=== PATIENT | male | born 1955 | race African-American/Black ===

== ENCOUNTER 2023-08-21 11:23 | Inpatient (IN) | payer MEDICARE ==
[2023-08-21 12:06] LABS: #Basophils Less than 0.03 10x3/uL (0.0-0.2); %Basophils 0.2 % (0.0-1.0); %Eosinophils 0.6 % (0.0-10.0); %Lymphocytes 7.2 % (21.0-51.0); %Monocytes 7.6 % (0.0-10.0); %Neutrophils 83.7 % (42.0-75.0); Hematocrit 32.3 % (42.0-52.0); Hemoglobin 10.3 g/dL (14.0-18.0); Mean Corpuscular HGB CONC 31.9 g/dL (32.0-36.0); Mean Corpuscular Hemoglobin 29.3 pg (27.0-31.0); Mean Corpuscular Volume 91.8 fL (78.0-98.0); Mean Platelet Volume 9.3 fL (7.4-10.4); Platelet Count 406 10x3/uL (130-400); RBC Distribution Width 14.2 % (11.5-14.5); Red Blood Cell (RBC) Count 3.52 mill/uL (4.70-6.10)
[2023-08-21 12:18] LABS: INR-International Normal Ratio 1.1
[2023-08-21 12:19] LABS: PTT 42.3 sec (22.9-36.1)
[2023-08-21 12:22] LABS: ALT (SGPT) 12 U/L (8-55); AST (SGOT) 16 U/L (5-34); Albumin 2.6 g/dL (3.4-4.8); Alkaline Phosphatase 104 U/L (40-110); Anion Gap 16 mmol/L (10-20); BUN (Urea Nitrogen) 13 mg/dL (8.4-25.7); Bilirubin, Total 0.9 mg/dL (0.2-1.2); Calc. Creatinine Clearance 0 mL/min (70-130); Calcium 9.3 mg/dL (7.8-10.44); Carbon Dioxide 23 mmol/L (23-31); Chloride 107 mmol/L (98-107); Estimated GFR 94; Globulin 3.8 g/dL (2.4-3.5); Glucose 84 mg/dL (80-115); Potassium 4.2 mmol/L (3.5-5.1); Protein, Total 6.4 g/dL (5.8-8.1); Sodium 142 mmol/L (136-145)
[2023-08-21] MEDS ORDERED: Ondansetron PF 4 MG/2 ML Vial IVP PRN (13:10)
[2023-08-21] MEDS ORDERED: Calcium Carbonate 500 MG ChewTAB PO PRN (13:10)
[2023-08-21 15:16] VITALS: BMI 23.7
[2023-08-21] MEDS: Sodium Chloride 0.9% 1,000 ML IV SCH (16:54)
[2023-08-21] MEDS: Cefepime 1 GM in Sodium Chloride 0.9% 100 ML IVPB SCH (16:54)
[2023-08-21] MEDS: Acetaminophen 325 MG TAB PO SCH (16:59)
[2023-08-21] MEDS: Morphine 4 MG/ML VIAL SLOW IVP SCH (17:01)
[2023-08-21] MEDS ORDERED: Albuterol 2.5 MG (3 mL) NEB NEB PRN (18:13)
[2023-08-21] MEDS: Vancomycin (BATCH) 2 GM in Premix 1 BAG IVPB SCH (18:35)
[2023-08-21 19:06] LABS: Hematocrit 32.2 % (42.0-52.0); Hemoglobin 10.1 g/dL (14.0-18.0)
[2023-08-21] MEDS: Pantoprazole 40 MG VIAL IVP SCH (21:16)
[2023-08-21] MEDS: Pregabalin 75 MG CAP PO SCH (21:16)
[2023-08-21] MEDS: Atorvastatin Calcium 40 MG TAB PO SCH (21:16)
[2023-08-21] MEDS: Morphine 2 MG/ML VIAL SLOW IVP PRN (21:19)
[2023-08-22] MEDS: traMADol HCl 50 MG TAB PO PRN (00:24)
[2023-08-22] MEDS: Cefepime 1 GM in Sodium Chloride 0.9% 100 ML IVPB SCH (03:30)
[2023-08-22] MEDS: Vancomycin (BATCH) 1.25 GM in Premix 1 BAG IVPB SCH (06:03)
[2023-08-22 06:19] LABS: #Basophils 0.04 10x3/uL (0.0-0.2); %Basophils 0.5 % (0.0-1.0); %Eosinophils 3.8 % (0.0-10.0); %Lymphocytes 12.7 % (21.0-51.0); %Monocytes 8.5 % (0.0-10.0); %Neutrophils 74.1 % (42.0-75.0); Hemoglobin 8.7 g/dL (14.0-18.0); Mean Corpuscular HGB CONC 31.1 g/dL (32.0-36.0); Mean Corpuscular Hemoglobin 29.4 pg (27.0-31.0); Mean Corpuscular Volume 94.6 fL (78.0-98.0); Platelet Count 350 10x3/uL (130-400); RBC Distribution Width 14.1 % (11.5-14.5); Red Blood Cell (RBC) Count 2.96 mill/uL (4.70-6.10)
[2023-08-22 06:32] LABS: Hemoglobin A1c 5.7 % (4.0-6.0); INR-International Normal Ratio 1.1; Prothrombin Time 14.6 sec (12.0-14.7)
[2023-08-22 06:37] LABS: ALT (SGPT) Less than 5 U/L (8-55); AST (SGOT) 13 U/L (5-34); Albumin 2.2 g/dL (3.4-4.8); Alkaline Phosphatase 86 U/L (40-110); Anion Gap 9 mmol/L (10-20); BUN (Urea Nitrogen) 11 mg/dL (8.4-25.7); Calc. Creatinine Clearance 113 mL/min (70-130); Calcium 8.4 mg/dL (7.8-10.44); Carbon Dioxide 22 mmol/L (23-31); Chloride 113 mmol/L (98-107); Cholesterol 49 mg/dl (< 200 Desired); Estimated GFR 97; Globulin 3.1 g/dL (2.4-3.5); Glucose 92 mg/dL (80-115); HDL Cholesterol 25 mg/dL (>60 Neg Risk); LDL Cholesterol, Calculated 12 mg/dL; Potassium 3.7 mmol/L (3.5-5.1); Protein, Total 5.3 g/dL (5.8-8.1); Sodium 140 mmol/L (136-145); Triglycerides 62 mg/dL (Less than 150); Vancomycin, Random 16.5 ug/mL (See Comment)
[2023-08-22] MEDS: Tamsulosin HCl 0.4 MG CAP PO SCH (08:56)
[2023-08-22] MEDS: Losartan 25 MG TAB PO SCH (08:56)
[2023-08-22] MEDS: Clopidogrel Bisulfate 75 MG TAB PO SCH (08:56)
[2023-08-22] MEDS: Aspirin 81 mg Enteric Coated Tablet PO SCH (08:56)
[2023-08-22] MEDS: Amlodipine 10 MG TAB PO SCH (08:56)
[2023-08-22] MEDS ORDERED: Iopamidol-370 76% 500 ML MDV (1 ML CHARGE) ONE (09:32)
[2023-08-22] MEDS: Famotidine 20 MG TAB PO SCH (09:49)
[2023-08-22] MEDS: Acetaminophen/Codeine 30-300mg Tablet PO PRN (11:03)
[2023-08-22 16:07] LABS: Hematocrit 29.1 % (42.0-52.0); Hemoglobin 9.3 g/dL (14.0-18.0)
[2023-08-22] MEDS: Enoxaparin 100 MG (1 mL) SYRINGE SC SCH (20:29)
[2023-08-23 06:00] LABS: #Basophils 0.03 10x3/uL (0.0-0.2); %Basophils 0.4 % (0.0-1.0); %Eosinophils 5.2 % (0.0-10.0); %Lymphocytes 11.7 % (21.0-51.0); %Monocytes 7.1 % (0.0-10.0); %Neutrophils 75.1 % (42.0-75.0); Hematocrit 28.8 % (42.0-52.0); Hemoglobin 9.1 g/dL (14.0-18.0); Mean Corpuscular HGB CONC 31.6 g/dL (32.0-36.0); Mean Corpuscular Hemoglobin 29.3 pg (27.0-31.0); Mean Corpuscular Volume 92.6 fL (78.0-98.0); Mean Platelet Volume 9.3 fL (7.4-10.4); Platelet Count 380 10x3/uL (130-400); RBC Distribution Width 14.3 % (11.5-14.5); Red Blood Cell (RBC) Count 3.11 mill/uL (4.70-6.10)
[2023-08-23 06:17] LABS: Vancomycin, Random 18.7 ug/mL (See Comment)
[2023-08-23 06:26] LABS: Anion Gap 10 mmol/L (10-20); BUN (Urea Nitrogen) 9 mg/dL (8.4-25.7); Calc. Creatinine Clearance 119 mL/min (70-130); Calcium 8.4 mg/dL (7.8-10.44); Carbon Dioxide 22 mmol/L (23-31); Chloride 115 mmol/L (98-107); Estimated GFR 98; Glucose 83 mg/dL (80-115); Potassium 3.8 mmol/L (3.5-5.1); Sodium 143 mmol/L (136-145)
[2023-08-23] MEDS ORDERED: Morphine 2 MG/ML VIAL ONE (08:26)
[2023-08-23] MEDS ORDERED: fentaNYL 50 mcg/mL 1 mL Vial ONE (08:50)
[2023-08-23 09:15] VITALS: BMI 23.7
[2023-08-23] MEDS ORDERED: EPINEPHrine 1 MG/ML VIAL ONE (11:04)
[2023-08-23] MEDS ORDERED: Heparin 5,000 UNITS/ML VIAL ONE (11:04)
[2023-08-23] MEDS ORDERED: Bupivacaine PF 0.5% 30 ML VIAL ONE (11:05)
[2023-08-23] MEDS ORDERED: fentaNYL PF 100 MCG/2 ML SYRINGE ONE (11:29)
[2023-08-23] MEDS ORDERED: PROPOFOL 20 ML ONE (11:29)
[2023-08-23] MEDS ORDERED: Lidocaine 1% PF 5 ML VIAL ONE (12:22)
[2023-08-23] MEDS: Vancomycin 1 GM in Premix 1 BAG IVPB SCH (19:23)
[2023-08-23] MEDS: GoLYTELY 4,000 ml Bottle PO SCH (19:26)
[2023-08-24 06:25] LABS: #Basophils 0.04 10x3/uL (0.0-0.2); %Basophils 0.4 % (0.0-1.0); %Eosinophils 2.5 % (0.0-10.0); %Monocytes 6.3 % (0.0-10.0); %Neutrophils 83.4 % (42.0-75.0); Hemoglobin 8.9 g/dL (14.0-18.0); Mean Corpuscular HGB CONC 30.7 g/dL (32.0-36.0); Mean Corpuscular Hemoglobin 29.5 pg (27.0-31.0); Mean Platelet Volume 9.5 fL (7.4-10.4); Platelet Count 351 10x3/uL (130-400); RBC Distribution Width 14.3 % (11.5-14.5); Red Blood Cell (RBC) Count 3.02 mill/uL (4.70-6.10)
[2023-08-24 06:38] LABS: Vancomycin, Random 37.7 ug/mL (See Comment)
[2023-08-24 06:43] LABS: Anion Gap 14 mmol/L (10-20); BUN (Urea Nitrogen) 10 mg/dL (8.4-25.7); Calc. Creatinine Clearance 121 mL/min (70-130); Calcium 8.4 mg/dL (7.8-10.44); Carbon Dioxide 15 mmol/L (23-31); Chloride 116 mmol/L (98-107); Estimated GFR 99; Glucose 80 mg/dL (80-115); Magnesium 1.9 mg/dL (1.6-2.6); Potassium 4.2 mmol/L (3.5-5.1); Sodium 141 mmol/L (136-145)
[2023-08-24] MEDS ORDERED: GoLYTELY 4,000 ml Bottle PO SCH (09:45)
[2023-08-24] MEDS: GoLYTELY 4,000 ml Bottle PO SCH (16:18)
[2023-08-24] MEDS: Enoxaparin 100 MG (1 mL) SYRINGE SC SCH (20:17)
[2023-08-25 05:36] LABS: Vancomycin, Random 23.2 ug/mL (See Comment)
[2023-08-25] MEDS: Vancomycin 1 GM in Premix 1 BAG IVPB SCH (08:27)
[2023-08-25] MEDS ORDERED: Midazolam HCl 2 mg/2 ml Vial ONE ×2 (09:31→10:32)
[2023-08-25] MEDS ORDERED: Vasopressin 20 UNITS/ML VIAL ONE (10:02)
[2023-08-25] MEDS ORDERED: PHENYLEPHRINE-NS 100 MCG/ML 10 ML SYRINGE ONE (10:02)
[2023-08-25] MEDS ORDERED: Albumin 5% 0 ML ONE (10:02)
[2023-08-25] MEDS ORDERED: Sodium Bicarb 50 MEQ/50 ML Abboject 8.4% SYRINGE ONE (10:02)
[2023-08-25] MEDS ORDERED: Phenylephrine 40 MG/NS 250 ML 250 ML ONE (10:02)
[2023-08-25] MEDS ORDERED: Ketamine In 0.9 % NaCl 50 MG/5 ML SYRINGE ONE (10:31)
[2023-08-25] MEDS ORDERED: ePHEDrine Sulfate 50 MG/10 ML VIAL ONE (11:02)
[2023-08-25] MEDS ORDERED: PROPOFOL 80 ML ONE (11:22)
[2023-08-25] MEDS ORDERED: Promethazine HCl 25 MG/ML VIAL IM PRN (11:50)
[2023-08-25] MEDS ORDERED: HYDROmorphone 2 MG/ML VIAL SLOW IVP PRN (11:50)
[2023-08-25] MEDS ORDERED: Ondansetron HCl/PF 4 MG/2 ML Vial IVP PRN (11:50)
[2023-08-25] MEDS: Apixaban 5 MG TAB PO SCH (20:25)
[2023-08-25] MEDS ORDERED: Enoxaparin 100 MG (1 mL) SYRINGE SC SCH (21:00)
[2023-08-26] MEDS: Cefepime 2 GM in Sodium Chloride 0.9% 100 ML IVPB SCH (04:23)
[2023-08-26 06:55] LABS: #Basophils 0.04 10x3/uL (0.0-0.2); %Basophils 0.4 % (0.0-1.0); %Eosinophils 2.7 % (0.0-10.0); %Lymphocytes 7.5 % (21.0-51.0); %Monocytes 6.4 % (0.0-10.0); %Neutrophils 82.5 % (42.0-75.0); Hematocrit 31.2 % (42.0-52.0); Hemoglobin 10.1 g/dL (14.0-18.0); Mean Corpuscular HGB CONC 32.4 g/dL (32.0-36.0); Mean Corpuscular Hemoglobin 28.9 pg (27.0-31.0); Mean Corpuscular Volume 89.1 fL (78.0-98.0); Mean Platelet Volume 9.9 fL (7.4-10.4); Platelet Count 326 10x3/uL (130-400); RBC Distribution Width 14.8 % (11.5-14.5)
[2023-08-26 07:18] LABS: Anion Gap 16 mmol/L (10-20); BUN (Urea Nitrogen) 7 mg/dL (8.4-25.7); Calc. Creatinine Clearance 132 mL/min (70-130); Calcium 8.3 mg/dL (7.8-10.44); Carbon Dioxide 19 mmol/L (23-31); Chloride 117 mmol/L (98-107); Estimated GFR 101; Glucose 90 mg/dL (80-115); Potassium 3.9 mmol/L (3.5-5.1); Sodium 148 mmol/L (136-145)
[2023-08-26 21:52] VITALS: BP 122/70; TEMP 98
== END 2023-08-26 21:35 | DRG 271 ==
LOC: SUATTDRO 11:23 → ERS 11:23 → T4-A 15:05 → OBSVTOIN 08-22 08:58
PROVIDERS: ADMIT Internal Medicine; ATTEND Family Medicine
PROC: 04CL3ZZ Extirpation of Matter from Left Femoral Artery, Percutaneous Approach (ICD-10-PCS; 2023-08-23)
PROC: 3E033XZ Introduction of Vasopressor into Peripheral Vein, Percutaneous Approach (ICD-10-PCS; 2023-08-23)
PROC: 0DB68ZX Excision of Stomach, Via Natural or Artificial Opening Endoscopic, Diagnostic (ICD-10-PCS; principal; 2023-08-25)
PROC: 0DBH8ZZ Excision of Cecum, Via Natural or Artificial Opening Endoscopic (ICD-10-PCS; 2023-08-25)
PROC: 0DBN8ZZ Excision of Sigmoid Colon, Via Natural or Artificial Opening Endoscopic (ICD-10-PCS; 2023-08-25)
PROC: 0DBM8ZZ Excision of Descending Colon, Via Natural or Artificial Opening Endoscopic (ICD-10-PCS; 2023-08-25)
PROC: 30233J1 Transfusion of Nonautologous Serum Albumin into Peripheral Vein, Percutaneous Approach (ICD-10-PCS; 2023-08-25)
DX: I96 Gangrene, not elsewhere classified (principal); I74.3 Embolism and thrombosis of arteries of the lower extremities; L03.116 Cellulitis of left lower limb; I82.401 Acute embolism and thrombosis of unspecified deep veins of right lower extremity; K63.5 Polyp of colon; J44.9 Chronic obstructive pulmonary disease, unspecified; E78.5 Hyperlipidemia, unspecified; I10 Essential (primary) hypertension; I25.10 Atherosclerotic heart disease of native coronary artery without angina pectoris; Z88.0 Allergy status to penicillin; Z79.82 Long term (current) use of aspirin; Z79.899 Other long term (current) drug therapy; Z66 Do not resuscitate; I48.91 Unspecified atrial fibrillation
CPT/HCPCS: 36415; 75635; 80048; 80053; 80061; 80202; 82274; 82565; 83036; 83735; 85025; 85610; 85730; 86141; 86850; 86900; 86901; 88305; 93005; 93970; 96375; 96376; 97139; C9113; G0378; J0171; J0665; J0692; J1644; J1650; J2250; J2270; J2272; J2704; J3010; J3370; J3370-JW; J3490; J7050; P9045; Q9967

== ENCOUNTER 2023-11-20 12:03 | Inpatient (IN) | payer MEDICARE, MEDICAID ==
[~2023-11-20 12:03] MED LIST: Iopamidol-370 76% 500 ML MDV (1 ML CHARGE) ONE
[2023-11-20 12:37] LABS: #Basophils 0.03 10x3/uL (0.0-0.2); %Basophils 0.5 % (0.0-1.0); %Eosinophils 2.9 % (0.0-10.0); %Lymphocytes 14.9 % (21.0-51.0); %Monocytes 4.5 % (0.0-10.0); Hematocrit 38.8 % (42.0-52.0); Hemoglobin 11.7 g/dL (14.0-18.0); Mean Corpuscular HGB CONC 30.2 g/dL (32.0-36.0); Mean Corpuscular Hemoglobin 29.3 pg (27.0-31.0); Mean Corpuscular Volume 97.2 fL (78.0-98.0); Mean Platelet Volume 9.7 fL (7.4-10.4); Platelet Count 297 10x3/uL (130-400); RBC Distribution Width 15.9 % (11.5-14.5); Red Blood Cell (RBC) Count 3.99 mill/uL (4.70-6.10)
[2023-11-20 12:49] LABS: INR-International Normal Ratio 1.1; Prothrombin Time 14.5 sec (12.0-14.7)
[2023-11-20 12:50] LABS: PTT 35.1 sec (22.9-36.1)
[2023-11-20 12:56] LABS: ALT (SGPT) 16 U/L (8-55); AST (SGOT) 15 U/L (5-34); Albumin 3.5 g/dL (3.4-4.8); Alkaline Phosphatase 99 U/L (40-110); Anion Gap 14 mmol/L (10-20); BUN (Urea Nitrogen) 13 mg/dL (8.4-25.7); Bilirubin, Total 0.8 mg/dL (0.2-1.2); Calc. Creatinine Clearance 0 mL/min (70-130); Calcium 9.6 mg/dL (7.8-10.44); Carbon Dioxide 23 mmol/L (23-31); Chloride 111 mmol/L (98-107); Estimated GFR 96; Globulin 3.1 g/dL (2.4-3.5); Glucose 104 mg/dL (80-115); Potassium 4.4 mmol/L (3.5-5.1); Protein, Total 6.6 g/dL (5.8-8.1); Sodium 144 mmol/L (136-145)
[2023-11-20 12:57] LABS: Troponin I Less than 0.010 ng/mL (< 0.028)
[2023-11-20] MEDS ORDERED: niCARdipine 25 MG in Sodium Chloride 0.9% 250 ML 250 ML IVPB PRN (14:11)
[2023-11-20] MEDS ORDERED: hydrALAZINE 20 MG/ML VIAL SLOW IVP PRN (14:11)
[2023-11-20] MEDS ORDERED: Insulin Lispro 100 UNIT/ML 10 ML VIAL SC PRN (15:00)
[2023-11-20] MEDS ORDERED: niCARdipine 25 MG/10 ML SDV ONE (16:31)
[2023-11-20] MEDS ORDERED: Dextrose 50% Abboject 50 ML SYRINGE SLOW IVP PRN (19:34)
[2023-11-20] MEDS ORDERED: Glucagon 1 MG/ML KIT IM PRN (19:34)
[2023-11-20] MEDS ORDERED: Dextrose 5% in Water 1,000 ML IV PRN (19:34)
[2023-11-20] MEDS: Sodium Chloride 0.9% 1,000 ML IV SCH (20:32)
[2023-11-20 20:36] VITALS: BMI 24.0
[2023-11-20] MEDS: Etomidate 40 MG (20 mL) VIAL IVP SCH (20:53)
[2023-11-20] MEDS ORDERED: Lorazepam 2 MG/ML VIAL SLOW IVP PRN (21:00)
[2023-11-20] MEDS ORDERED: Fentanyl BOLUS 250 ML IVPB PRN (21:00)
[2023-11-20] MEDS ORDERED: DISCONTINUE PREVIOUS NARCOTIC PAIN MEDICATIONS AND BENZODIAZEPINES FS SCH (21:00)
[2023-11-20] MEDS ORDERED: Fentanyl CADD 100 ML IV SCH (21:00)
[2023-11-20] MEDS ORDERED: Morphine 2 MG/ML VIAL SLOW IVP PRN (21:00)
[2023-11-20] MEDS ORDERED: Propofol BOLUS 1,000 MG/100 ML VIAL IV PRN (21:00)
[2023-11-20] MEDS ORDERED: Propofol 1,000 MG/100 ML VIAL IV PRN (21:00)
[2023-11-20 21:26] LABS: Actual Bicarbonate (HCO3a) 21.7 mEq/L (22-28); CO2 Tension 33.3 mmHg (35.0-45.0); Calcium, Ionized (arterial) 1.15 mmol/L (1.12-1.30); Carboxyhemoglobin (COHb) 0.5 gm% (0.0-3.0); Hematocrit-ABG 33 % (42.0-52.0); Hemoglobin (Hb) 11.2 g/dL (14.0-18.0); O2 Tension (PaO2), arterial 75.7 mmHg (> 70.0); Potassium - ABG Lab 3.79 mmol/L (3.70-5.30); pH, Arterial 7.431 (7.35-7.45)
[2023-11-20 21:27] LABS: Puncture Site Right Radial artery
[2023-11-20 21:28] LABS: ALV-art Gradient 167.875 mmHg (0-20)
[2023-11-20] MEDS: HUM PROTHROMBIN CPLX IV SCH (21:36)
[2023-11-20] MEDS: [UNRECOGNIZED DRUG - OTHER] IV SCH (21:36)
[2023-11-20] MEDS: ADMIXTURE FEE IV SCH (21:36)
[2023-11-20] MEDS: PROPOFOL 200 MG/20 ML VIAL IV SCH (21:40)
[2023-11-20] MEDS: Ventilator Sedation Protocol 1 EACH FS ONE (21:45)
[2023-11-20] MEDS ORDERED: NOREPINEPHRINE 8 MG/250 ML-D5W 250 ML IVPB SCH (21:45)
[2023-11-20] MEDS: Famotidine/PF 20 mg/2ml Vial SLOW IVP SCH (21:46)
[2023-11-21] MEDS: Propofol 1,000 MG/100 ML VIAL IV SCH (06:28)
[2023-11-21 07:07] LABS: #Basophils 0.04 10x3/uL (0.0-0.2); %Basophils 0.5 % (0.0-1.0); %Eosinophils 0.6 % (0.0-10.0); %Lymphocytes 9.3 % (21.0-51.0); %Neutrophils 81.3 % (42.0-75.0); Hematocrit 34.4 % (42.0-52.0); Hemoglobin 10.7 g/dL (14.0-18.0); Mean Corpuscular HGB CONC 31.1 g/dL (32.0-36.0); Mean Corpuscular Hemoglobin 29.8 pg (27.0-31.0); Mean Corpuscular Volume 95.8 fL (78.0-98.0); Mean Platelet Volume 9.4 fL (7.4-10.4); Platelet Count 278 10x3/uL (130-400); Red Blood Cell (RBC) Count 3.59 mill/uL (4.70-6.10)
[2023-11-21 07:29] LABS: Anion Gap 10 mmol/L (10-20); BUN (Urea Nitrogen) 12 mg/dL (8.4-25.7); Calc. Creatinine Clearance 101 mL/min (70-130); Calcium 8.9 mg/dL (7.8-10.44); Carbon Dioxide 22 mmol/L (23-31); Chloride 119 mmol/L (98-107); Estimated GFR 95; Glucose 91 mg/dL (80-115); Sodium 147 mmol/L (136-145)
[2023-11-21 08:28] LABS: Base Excess (BEa) -4.6 mEq/L (-2.0 to +3.0); CO2 Tension 25.9 mmHg (35.0-45.0); Carboxyhemoglobin (COHb) 0.7 gm% (0.0-3.0); Hematocrit-ABG 33 % (42.0-52.0); Hemoglobin (Hb) 11.1 g/dL (14.0-18.0); O2 Tension (PaO2), arterial 96.2 mmHg (> 70.0); Potassium - ABG Lab 3.77 mmol/L (3.70-5.30); pH, Arterial 7.459 (7.35-7.45)
[2023-11-21 08:32] LABS: Puncture Site Left Radial artery
[2023-11-21 08:33] LABS: ALV-art Gradient 156.625 mmHg (0-20)
[2023-11-21] MEDS: Morphine 4 MG/ML VIAL SLOW IVP PRN (14:11)
[2023-11-21] MEDS: Lorazepam 2 MG/ML VIAL SLOW IVP PRN (14:11)
[2023-11-22] MEDS: Glycopyrrolate 0.4 MG/ 2 ML VIAL SLOW IVP PRN (12:08)
[2023-11-22] MEDS: Scopolamine 1 mg/72 hour Patch TD SCH (12:57)
[2023-11-22 16:39] VITALS: BMI 23.8
[2023-11-23] MEDS ORDERED: FLU (Fluad Triv) TS24-25 (65UP)/MF59C/PF 45 MCG/0.5 ML Syringe IM ONE (09:00)
[2023-11-24 20:05] VITALS: BP 75/39
[2023-11-24 21:15] VITALS: TEMP 98.7
== END 2023-11-24 22:50 | disposition expired | DRG 64 ==
LOC: ERS 12:03 → CCU 15:02 → T4-B 11-21 21:08
PROVIDERS: ADMIT Internal Medicine; ATTEND Family Medicine
PROC: 4A00X4Z Measurement of Central Nervous Electrical Activity, External Approach (ICD-10-PCS; principal; 2023-11-20)
PROC: 0BH17EZ Insertion of Endotracheal Airway into Trachea, Via Natural or Artificial Opening (ICD-10-PCS; 2023-11-20)
PROC: 4A133R1 Monitoring of Arterial Saturation, Peripheral, Percutaneous Approach (ICD-10-PCS; 2023-11-20)
PROC: 30283B1 Transfusion of Nonautologous 4-Factor Prothrombin Complex Concentrate into Vein, Percutaneous Approach (ICD-10-PCS; 2023-11-20)
PROC: 3E033XZ Introduction of Vasopressor into Peripheral Vein, Percutaneous Approach (ICD-10-PCS; 2023-11-20)
PROC: 5A1935Z Respiratory Ventilation, Less than 24 Consecutive Hours (ICD-10-PCS; 2023-11-20)
PROC: 0T9B70Z Drainage of Bladder with Drainage Device, Via Natural or Artificial Opening (ICD-10-PCS; 2023-11-20)
DX: I61.0 Nontraumatic intracerebral hemorrhage in hemisphere, subcortical (principal); G93.41 Metabolic encephalopathy; J96.00 Acute respiratory failure, unspecified whether with hypoxia or hypercapnia; I16.1 Hypertensive emergency; G81.94 Hemiplegia, unspecified affecting left nondominant side; R47.01 Aphasia; Z51.5 Encounter for palliative care; Z66 Do not resuscitate; I10 Essential (primary) hypertension; N40.0 Benign prostatic hyperplasia without lower urinary tract symptoms; I73.9 Peripheral vascular disease, unspecified; E78.5 Hyperlipidemia, unspecified; I25.10 Atherosclerotic heart disease of native coronary artery without angina pectoris; Z89.512 Acquired absence of left leg below knee; G89.29 Other chronic pain; K21.9 Gastro-esophageal reflux disease without esophagitis; J44.9 Chronic obstructive pulmonary disease, unspecified; G47.00 Insomnia, unspecified; N31.9 Neuromuscular dysfunction of bladder, unspecified; Z88.8 Allergy status to other drugs, medicaments and biological substances; F17.210 Nicotine dependence, cigarettes, uncomplicated; Z86.73 Personal history of transient ischemic attack (TIA), and cerebral infarction without residual deficits; Z79.82 Long term (current) use of aspirin; Z79.01 Long term (current) use of anticoagulants; Z88.0 Allergy status to penicillin; Z86.718 Personal history of other venous thrombosis and embolism; Z79.52 Long term (current) use of systemic steroids; Z79.899 Other long term (current) drug therapy
CPT/HCPCS: 36415; 36416; 36600; 70450; 70496; 70498; 71045; 74018; 80048; 80053; 82805; 84484; 85025; 85610; 85730; 93005; 94002; 94003; 96374; 96375; J2060; J2272; J2704; J3490; J7030; J7168; Q9967